=== PATIENT | female | born 1970 | race Caucasian/White ===

== ENCOUNTER → 2017-11-10 | Emergency (ER) | payer MEDICARE, MEDICAID ==
[~2017-11-10] VITALS: Ht 175.3 cm; Wt 63.5 kg
[~2017-11-10] MED LIST: ACETAMINOPHEN ES 500 MG TABLET ONE; ACETAMINOPHEN ES 500 MG TABLET PO ONE
[2017-11-10 14:09] VITALS: BP 102/81
== END | disposition home or self-care (01) ==
LOC: ER 13:55
DX: J06.9 Acute upper respiratory infection, unspecified (principal); F31.9 Bipolar disorder, unspecified
CPT/HCPCS: 99283; A4606; Z7610

== ENCOUNTER 2018-03-17 19:50 | Emergency (ER) | payer MEDICARE, MEDICAID ==
[~2018-03-17] VITALS: Ht 172.7 cm; Wt 68.0 kg
[2018-03-17] MEDS ORDERED: HYDROCODONE/APAP 5/325MG 1 EACH TABLET ONE (20:26)
[2018-03-17] MEDS ORDERED: ONDANSETRON 4 MG TAB.RAPDIS ONE (20:26)
[2018-03-17] MEDS ORDERED: TRAMADOL HCL 50 MG TABLET PO ONE (20:30)
[2018-03-17] MEDS ORDERED: ONDANSETRON 4 MG TAB.RAPDIS SL ONE (20:30)
[2018-03-17] MEDS ORDERED: HYDROCODONE/APAP 5/325MG 1 EACH TABLET PO ONE (20:30)
[2018-03-17] MEDS ORDERED: TRAMADOL HCL 50 MG TABLET ONE (21:13)
[2018-03-17 22:46] VITALS: BP 101/60
== END 2018-03-17 22:47 | disposition home or self-care (01) ==
LOC: ER 19:51
DX: S63.92XA Sprain of unspecified part of left wrist and hand, initial encounter (principal); F31.9 Bipolar disorder, unspecified; W17.89XA Other fall from one level to another, initial encounter; Y93.39 Activity, other involving climbing, rappelling and jumping off; Y92.89 Other specified places as the place of occurrence of the external cause; Y99.8 Other external cause status
CPT/HCPCS: 73090-TC; 73130-TC; A4606; Q0162; Z7610

== ENCOUNTER 2022-03-14 16:14 | Inpatient (IN) | payer MEDICARE, OTHER ==
[~2022-03-14] VITALS: Ht 172.7 cm; Wt 83.9 kg
--- NOTE | 2022-03-14 16:33 | NUR ---
CAME IN FOR SUICIDAL IDEATION WITH PLAN TO OD ON PILLS. TO ER BED 11, HOOKED TO MONITOR, CHANGED TO HOSP GOWN, WARM BLANKET PROVIDED. PATIENT AAO x 4, NOT IN DISTRESS. SUICIDAL PRECAUTIONS APPLIED. SITTER AT BEDSIDE. AWAITING MD MOTA
--- NOTE | 2022-03-14 16:36 | NUR ---
DR WEBB AT BEDSIDE
[2022-03-14 17:06] LABS: BASOPHILS % (AUTO) 0.5 % (0.0-2.0); HEMATOCRIT 41 % (33-45); HEMOGLOBIN 13.2 g/dL (11.5-14.8); LYMPHOCYTES # (AUTO) 0.8 K/uL (0.8-4.8); LYMPHOCYTES % (AUTO) 9.7 % (20.0-44.0); MEAN CORPUSCULAR HGB CONC 33 g/dl (31.0-36.0); MEAN CORPUSCULAR VOLUME 96 fL (82-100); MONOCYTES % (AUTO) 11.2 % (2.0-12.0); NEUTROPHILS # (AUTO) 6.6 K/uL (1.8-8.9); NEUTROPHILS % (AUTO) 77.6 % (43.0-81.0); PLATELET COUNT (AUTO) 315 K/uL (150-450); RED BLOOD CELL COUNT(AUTO) 4.21 MIL/uL (4.0-5.2); WHITE BLOOD COUNT (AUTO) 8.5 K/uL (4.3-11.0)
--- NOTE | 2022-03-14 17:15 | NUR ---
PETER ORELLANA [phone] LEFT VM
--- NOTE | 2022-03-14 17:16 | NUR ---
URINE COLLECTED AND SENT TO LAB
[2022-03-14] MEDS ORDERED: ACETAMINOPHEN ES 500 MG TABLET ONE (17:25)
[2022-03-14] MEDS ORDERED: ACETAMINOPHEN ES 500 MG TABLET PO ONE (17:30)
--- NOTE | 2022-03-14 17:33 | NUR ---
PER LAB, NEEDS MORE URINE SAMPLE. MADE MD AWARE
[2022-03-14 17:42] LABS: ACETAMINOPHEN 4 ug/ml (10-30); ALANINE AMINOTRANSFERASE 30 U/L (12-78); ALBUMIN 3.6 g/dL (3.4-5.0); ALKALINE PHOSPHATASE 129 U/L (46-116); ASPARTATE AMINOTRANSFERASE 16 U/L (15-37); BILIRUBIN,DIRECT 0.1 mg/dL (0.0-0.2); BILIRUBIN,TOTAL 0.2 mg/dL (0.2-1.0); CALCIUM, SERUM 8.7 mg/dL (8.5-10.1); CARBON DIOXIDE 26 mmol/L (21-32); CHLORIDE 106 mmol/L (98-107); GLUCOSE 109 mg/dL (74-106); SODIUM SERUM 135 mmol/L (136-145); TOTAL PROTEIN, SERUM 6.7 g/dL (6.4-8.2); UREA NITROGEN, BLOOD 18 mg/dL (7-18)
[2022-03-14 17:42] LABS: BILIRUBIN,URINE NEGATIVE (NEGATIVE); COLOR,URINE YELLOW (YELLOW); LEUKOCYTE ESTERASE ,URINE NEGATIVE (NEGATIVE); NITRITE, URINE NEGATIVE (NEGATIVE); PROTEIN,URINE NEGATIVE (NEGATIVE); UGLUCOSE NEGATIVE (NEGATIVE); UROBILINOGEN,URINE 0.2 EU/dL (0.2)
[2022-03-14 17:45] LABS: ALCOHOL, BLOOD < 3 mg/dL (0-0)
--- NOTE | 2022-03-14 17:47 | NUR ---
PATIENT NOT ABLE TO PROVIDE URINE SAMPLE AT THIS TIME. MADE AWARE
--- NOTE | 2022-03-14 17:50 | NUR ---
URINE SAMPLE SENT TO LAB
[2022-03-14 17:51] LABS: BACTERIA,URINE None seen /HPF (None Seen); RBC,URINE 0-2 /HPF (0-2); SQUAMOUS EPITHELIAL CELL,UR 0-2 /HPF (None Seen); WBC,URINE 0-2 /HPF (0-3)
--- NOTE | 2022-03-14 18:03 | NUR ---
REYNA CALLED SHE BE HERE AFTER CHANGE OF SHIFT.
[2022-03-14] MEDS ORDERED: MIDODRINE HCL (5MG) 5 MG TABLET ONE (18:29)
[2022-03-14] MEDS ORDERED: SODIUM CHLORIDE 1000 MG TABLET PO ONE (18:30)
[2022-03-14] MEDS ORDERED: DROXIDOPA 300 MG PO ONE (18:30)
[2022-03-14] MEDS: MIDODRINE HCL (5MG) 5 MG TABLET PO SCH (18:30)
[2022-03-14] MEDS ORDERED: MISCELLANEOUS MED 1 EA EA XX ONE (18:30)
--- NOTE | 2022-03-14 19:22 | NUR ---
REPORT GIVEN TO RICK CHOWDARY FOR SHANNAN
[2022-03-14] MEDS ORDERED: OLANZAPINE 5 MG TABLET ONE (23:58)
[2022-03-15] MEDS ORDERED: OLANZAPINE 5 MG TABLET PO ONE
[2022-03-15] MEDS ORDERED: LORAZEPAM 1 MG TABLET ONE (00:14)
[2022-03-15] MEDS ORDERED: LORAZEPAM 1 MG TABLET PO ONE (00:30)
--- NOTE | 2022-03-15 01:22 | NUR ---
REPORT GIVEN TO EPI SADLER
--- NOTE | 2022-03-15 01:28 | NUR ---
PT TRANSFERRED TO GPS, VSS, NO ACUTE DISTRESS NOTED.
[2022-03-15] MEDS ORDERED: MAG HYDROX/AL HYDROX/SIMETH 30 ML UDC PO PRN (02:00)
[2022-03-15] MEDS ORDERED: MAGNESIUM HYDROXIDE 30 ML UDC PO PRN (02:00)
[2022-03-15] MEDS ORDERED: FLUO40CA8 PO (02:06)
[2022-03-15] MEDS ORDERED: FLUO10CA26 PO (02:07)
[2022-03-15] MEDS ORDERED: PROP60CA38 PO (02:09)
[2022-03-15] MEDS ORDERED: QUET300T2 PO (02:10)
[2022-03-15] MEDS: TEMAZEPAM 15 MG CAPSULE PO PRN (02:11)
[2022-03-15] MEDS ORDERED: BUPR300T52 PO (02:11)
[2022-03-15] MEDS ORDERED: METH36TA PO (02:13)
--- NOTE | 2022-03-15 02:13 | NUR ---
RN NOTES: INSOMNIA PT. C/O UNABLE TO SLEEP , PRN RESTORIL 15 MG PO GIVEN PER PT. REQUEST, WILL CONTINUE TO MONITOR.
[2022-03-15] MEDS ORDERED: ESTR2TAB PO (02:15)
[2022-03-15] MEDS ORDERED: SENN-86 PO (02:16)
[2022-03-15] MEDS ORDERED: DROX300C PO (02:27)
[2022-03-15] MEDS ORDERED: POTA-10 PO (02:28)
[2022-03-15] MEDS ORDERED: BLOOD SUGAR DIAGNOSTIC 1 EACH STRIP IN ONE (02:30)
[2022-03-15] MEDS ORDERED: DICY10CA13 PO (02:32)
[2022-03-15] MEDS ORDERED: SODI1TAB66 PO (02:32)
[2022-03-15] MEDS ORDERED: CYAN-51 PO (02:33)
[2022-03-15] MEDS ORDERED: DIPH50CA4 PO (02:35)
[2022-03-15] MEDS ORDERED: [UNRECOGNIZED DRUG - REMARK] PO (02:38)
[2022-03-15] MEDS ORDERED: IPRA21SP NAS (02:44)
[2022-03-15] MEDS ORDERED: LAMO200T2 PO (02:44)
[2022-03-15] MEDS ORDERED: LIOT5TAB7 PO (02:46)
[2022-03-15] MEDS ORDERED: MAGN400T26 PO (02:49)
[2022-03-15] MEDS ORDERED: PRUC2TAB PO (02:50)
[2022-03-15] MEDS ORDERED: PROG100C15 PO (02:52)
[2022-03-15] MEDS ORDERED: SWISS KRISS PO (02:54)
[2022-03-15] MEDS ORDERED: [UNRECOGNIZED DRUG - OTHER] PO (02:56)
[2022-03-15] MEDS ORDERED: TOPI100T PO (02:57)
[2022-03-15] MEDS ORDERED: TRAZ-257 PO (02:58)
[2022-03-15] MEDS ORDERED: VASCULERA PO (02:59)
[2022-03-15] MEDS ORDERED: ASCO-317 PO (03:01)
[2022-03-15] MEDS ORDERED: ERGO500040 PO (03:02)
[2022-03-15 03:10] VITALS: BP 115/70
--- NOTE | 2022-03-15 04:03 | NUR ---
RN NOTES : ADMISSION NOTES: ADMITTED THIS 51Y/O FEMALE PATIENT ADMIT FROM [facility]/ ED , INITIALLY FROM HOME PT. ADMITTED TO 5150 HOLD STATUS, PER HOLD SI, ATTEMPTED TO END HER LIFE , ANXIOUS, CRYING FACE TO FACE ASSESSMENT PATIENT IS A&O X 3 ANXIOUS ,EASILY AGITATED, RESTLESS ,PARANOID ,DISHELVED , NEEDY DEMEDNING ,POOR DECISION MAKING , LOUD SPEECH, HYPERVERBAL , POOR DECISION MAKING , BIZAAR BEHAVIOR , DENIES SI /HI AT THIS TIME, PT. IS POOR HISTORIAN, POOR INSIGHT ,POOR JUDGEMENT , BOTH MD AWARE AND NOTIFIED OF THE ADMISSION, BELONGINGS CONTRABAND WERE DONE , PT. SIGNS ADMISSION CONSENT PAPER ,ENCOURAGED PT. TO TAKE SHOWER, PT. RIGHTS DISCUSS BY OUTPLACEMENT CONSULTANT , PROVIDE THE PT. WITH HANDBOOK, AND MEDICATIONS GUIDE, ENVIRONMENTAL SAFETY CHECK DONE, ENCOURAGED PT. VERBALIZED ANY FEELING CONCERN TO STAFF, ORIENT TO UNIT POLICY, NO ACUTE DISTRESS NOTED,VITAL SIGNS WNL ,DENIES ANY PAIN AT THIS TIME,WILL CONTINUE TO MONITOR FOR Q15 SAFETY AND BEHAVIOR.
--- NOTE | 2022-03-15 06:20 | NUR ---
RN NOTES: PLACED CALLED TO FAMILY MEMEBER SHYAM GRAYSON AND LEFT MESSAGE REGARDING ABOUT ADMISSION .
[2022-03-15 08:00] VITALS: BP 138/96
[2022-03-15] MEDS ORDERED: [UNRECOGNIZED DRUG - REMARK] PO SCH (09:00)
[2022-03-15] MEDS ORDERED: KRISS PO SCH (09:00)
[2022-03-15] MEDS: DICYCLOMINE HCL 10 MG CAPSULE PO SCH ×3 (09:00→17:45)
[2022-03-15] MEDS: LIOTHYRONINE SODIUM (5 MCG/TA 5 MCG TABLET PO SCH (09:00)
[2022-03-15] MEDS ORDERED: VASCULERA 630 MG PO SCH (09:00)
[2022-03-15] MEDS ORDERED: [UNRECOGNIZED DRUG - OTHER] PO SCH (09:00)
[2022-03-15] MEDS: MIDODRINE HCL (5MG) 5 MG TABLET PO SCH ×3 (09:00→17:45)
[2022-03-15] MEDS: PROPRANOLOL LA 60 MG CAP.SA.24H PO SCH ×2 (10:56→17:47)
[2022-03-15] MEDS: LORAZEPAM 1 MG TABLET PO PRN ×2 (12:39→23:00)
--- NOTE | 2022-03-15 12:39 | NUR ---
Patient complain of anxiety medicated with Ativan 1mg x1 ,will continue to monitor .
[2022-03-15 16:00] VITALS: BP 134/88
[2022-03-15] MEDS: SENNOSIDES/DOCUSATE SODIUM 1 TAB TABLET PO SCH (17:44)
[2022-03-15] MEDS: MAGNESIUM OXIDE 400 MG TABLET PO SCH (17:45)
[2022-03-15] MEDS: ASCORBIC ACID 500 MG TABLET PO SCH (17:45)
--- NOTE | 2022-03-15 19:25 | NUR ---
GPS RN NOTES PATIENT IS IN HER ROOM RESTING COMFORTABLY. ALERT AND ORIENTED X2. NO S/S OF ACUTE DISTRESS NOTED. PATIENT IS CALM, COOPERATIVE TO CARE, DEPRESSED MOOD, CRYING SPELLS AND MED COMPLIANT. DENIES SI/HI/AVH AT THIS TIME. SAFETY PRECAUTIONS IN PLACE. WILL CONTINUE TO MONITOR Q15MIN ROUNDS FOR SAFETY AND BEHAVIOR.
[2022-03-15 20:56] VITALS: BP_SYST 82
[2022-03-15] MEDS: PROMETRIUM 100 MG PO SCH (21:02)
[2022-03-16] MEDS: LORAZEPAM 1 MG TABLET PO PRN ×3 (04:01→21:09)
[2022-03-16] MEDS: ACETAMINOPHEN 325 MG TABLET PO PRN ×2 (04:09→21:09)
[2022-03-16 07:17] LABS: BASOPHILS % (AUTO) 0.4 % (0.0-2.0); HEMATOCRIT 42 % (33-45); HEMOGLOBIN 13.8 g/dL (11.5-14.8); LYMPHOCYTES # (AUTO) 2.1 K/uL (0.8-4.8); LYMPHOCYTES % (AUTO) 33.2 % (20.0-44.0); MEAN CORPUSCULAR HGB CONC 33 g/dl (31.0-36.0); MEAN CORPUSCULAR VOLUME 95 fL (82-100); MONOCYTES % (AUTO) 15.9 % (2.0-12.0); NEUTROPHILS # (AUTO) 2.9 K/uL (1.8-8.9); NEUTROPHILS % (AUTO) 46.5 % (43.0-81.0); PLATELET COUNT (AUTO) 322 K/uL (150-450); WHITE BLOOD COUNT (AUTO) 6.4 K/uL (4.3-11.0)
[2022-03-16 07:37] LABS: ALBUMIN 3.3 g/dL (3.4-5.0); BILIRUBIN,TOTAL 0.2 mg/dL (0.2-1.0); CREATININE 0.7 mg/dL (0.6-1.3); POTASSIUM 3.6 mmol/L (3.5-5.1); TOTAL PROTEIN, SERUM 6.6 g/dL (6.4-8.2)
[2022-03-16 07:52] LABS: CALCIUM, SERUM 8.7 mg/dL (8.5-10.1)
[2022-03-16 08:00] VITALS: BP 148/77
--- NOTE | 2022-03-16 10:37 | NUR ---
NADJA Initial Discharge Plan: Patient currently resides at home [address] [place] [address]; ([phone]) with her Narinder ([phone]) and would want to return back home. NADJA will work with the MD and family to help coordinate appropriate discharge.
--- NOTE | 2022-03-16 10:38 | NUR ---
SW Admit Source: Pt placed on a 5150 hold for danger to herself. Pt has been depressed at home. Patient currently resides at home [address] [place] [id number]; ([phone]) with her Narinder ([phone]) and would want to return back home.
--- NOTE | 2022-03-16 11:35 | NUR ---
NADJA Family Contact: SW contacted pt's Narinder ([phone]) and left a detailed voicemail of pt's admission and discussing discharge/treatment plan.
[2022-03-16] MEDS: LIOTHYRONINE SODIUM (5 MCG/TA 5 MCG TABLET PO SCH (11:39)
[2022-03-16] MEDS: ESTRADIOL 1 MG TABLET PO SCH (11:40)
[2022-03-16] MEDS: DICYCLOMINE HCL 10 MG CAPSULE PO SCH ×3 (11:41→18:04)
[2022-03-16] MEDS: CYANOCOBALAMIN 500 MCG TABLET PO SCH (11:41)
[2022-03-16] MEDS: MIDODRINE HCL (5MG) 5 MG TABLET PO SCH ×3 (11:41→18:05)
[2022-03-16] MEDS: POTASSIUM CHLORIDE 10 MEQ TABLET.SA PO SCH (11:42)
[2022-03-16] MEDS: ASCORBIC ACID 500 MG TABLET PO SCH ×2 (11:42→18:04)
[2022-03-16] MEDS: MAGNESIUM OXIDE 400 MG TABLET PO SCH ×2 (11:42→18:04)
[2022-03-16] MEDS: SODIUM CHLORIDE 1000 MG TABLET PO SCH (11:42)
[2022-03-16] MEDS: MOTEGRITY 2 MG PO SCH (14:00)
[2022-03-16] MEDS: PROMETRIUM 100 MG PO SCH (14:00)
[2022-03-16] MEDS: PROPRANOLOL LA 60 MG CAP.SA.24H PO SCH ×2 (14:02→18:10)
[2022-03-16] MEDS: IPRATROPIUM BROMIDE 0.03 % 30 ML NASPR NS SCH ×4 (14:04→21:13)
[2022-03-16 16:00] VITALS: BP 133/85
[2022-03-16] MEDS: SENNOSIDES/DOCUSATE SODIUM 1 TAB TABLET PO SCH (18:19)
--- NOTE | 2022-03-16 18:52 | NUR ---
PATIENT COMPLIANT WITH CARE, EXPRESSING DESIRE TO TALK TO PSYCH MED MD TO ADD BI-POLAR MEDICATIONS TO TREATMENT AT HOME SHE IS USE TO THESE MEDICATIONS, PROVIDED ALL MD MEDICATION ORDERS PRESCRIBED, PT COMPLIANT AND TOOK ALL MEDICATIONS, CAME AND BROUGHT IN A TURKEY SANDWICH, PICKLE, POTATOE CHIPS, AND A LARGE POWERADE GATORADE, WATER AND ICE PROVIDED AND PROVIDED COMFORT AND REASSURANCE ALL WILL GET BETTER, AND OFFERED PRAYER TO HELP HER FROM CRYING AND FEELING SO SAD , SHE WAS RECEPTIVE AND PRAYED AND STATED SHE DID BELIEVE BUT SOMETIMES BEING SOUNDS LIKE A BETTER OPTION, I REDIRECTED HER THAT THAT IS A NEGATIVE BAD THOUGHT AND THE CONSEQUENCES WOULD NOT BE GOOD AND TO TRY TO THINK ABOUT MORE POSITIVE THOUGHTS WHEN THE THOUGHTS OF SUICIDE AND TAKING HER OWN LIFE CREEP INTO HER MINDSET, SHE NODDED HER HEAD AND SAID SHE WOULD REALLY TRY TO BE MORE POSITIVE. MEDITATION AND PRAYER TECHNIQUES AND REINFORCEMENT OF POSITIVE AFFIRMATIONS WERE EFFECTIVE FOR THIS PATIENT.
[2022-03-16 19:54] VITALS: BP 129/76
[2022-03-16] MEDS: LamoTRIgine 100 MG TABLET PO SCH (21:09)
[2022-03-16] MEDS: TRAZODONE 50 MG TABLET PO SCH (21:09)
[2022-03-17] MEDS: TEMAZEPAM 15 MG CAPSULE PO PRN ×2 (02:14→22:10)
[2022-03-17] MEDS: IPRATROPIUM BROMIDE 0.03 % 30 ML NASPR NS SCH ×5 (06:25→20:35)
[2022-03-17] MEDS: LEVOTHYROXINE SODIUM 25 MCG TABLET PO SCH (07:00)
[2022-03-17] MEDS: ACETAMINOPHEN 325 MG TABLET PO PRN ×2 (07:06→18:30)
[2022-03-17 08:00] VITALS: BP 119/75
[2022-03-17] MEDS: SODIUM CHLORIDE 1000 MG TABLET PO SCH (09:08)
[2022-03-17] MEDS: LIOTHYRONINE SODIUM (5 MCG/TA 5 MCG TABLET PO SCH (09:08)
[2022-03-17] MEDS: CYANOCOBALAMIN 500 MCG TABLET PO SCH (09:08)
[2022-03-17] MEDS: ASCORBIC ACID 500 MG TABLET PO SCH ×2 (09:08→17:38)
[2022-03-17] MEDS: ESTRADIOL 1 MG TABLET PO SCH (09:09)
[2022-03-17] MEDS: DICYCLOMINE HCL 10 MG CAPSULE PO SCH ×3 (09:09→17:38)
[2022-03-17] MEDS: BUPROPION XL 150 MG TAB.ER.24 PO SCH (09:09)
[2022-03-17] MEDS: POTASSIUM CHLORIDE 10 MEQ TABLET.SA PO SCH (09:09)
[2022-03-17] MEDS: LamoTRIgine 100 MG TABLET PO SCH ×2 (09:09→22:00)
[2022-03-17] MEDS: MAGNESIUM OXIDE 400 MG TABLET PO SCH ×2 (09:09→17:38)
[2022-03-17] MEDS: MOTEGRITY 2 MG PO SCH (09:22)
[2022-03-17] MEDS: PROPRANOLOL LA 60 MG CAP.SA.24H PO SCH ×2 (09:23→17:43)
[2022-03-17] MEDS: MIDODRINE HCL (5MG) 5 MG TABLET PO SCH ×3 (09:28→17:39)
--- NOTE | 2022-03-17 10:34 | NUR ---
Social Work Note/Substance Abuse Intervention: Patient was provided with a brief substance abuse intervention and referred to [facility] ([phone]), [facility] ([phone]), and [facility] ([phone]) for drinking alcohol in the past.
[2022-03-17] MEDS: LORAZEPAM 1 MG TABLET PO PRN ×2 (12:53→20:34)
--- NOTE | 2022-03-17 12:54 | NUR ---
Patient complain of anxiety medicated with Ativan 1mg x1 ,will continue to monitor .
[2022-03-17 16:00] VITALS: BP 123/90
[2022-03-17] MEDS: SENNOSIDES/DOCUSATE SODIUM 1 TAB TABLET PO SCH (17:38)
[2022-03-17 19:42] VITALS: BP 145/73
--- NOTE | 2022-03-17 20:00 | NUR ---
GPS RN NOTE RECEIVED PATIENT IN HER ROOM WITH HER . PATIENT DENIES SI/HI AT THIS TIME. PATIENT ABLE TO MAKE NEEDS KNOWN. PATIENT IS AMBULATORY AND STEADY. PT IS HAPPY TO BE GOING HOME TOMORROW. SAFETY PRECAUTIONS IN PLACE. WILL CONTINUE TO MONITOR Q15MIN FOR SAFETY AND BEHAVIOR.
--- NOTE | 2022-03-17 20:47 | NUR ---
GPS RN NOTE PATIENT ANXIOUS AND RESTLESS, REQUESTED ATIVAN. ATIVAN 1 MG PO GIVEN ORDERED. WILL CONTINUE TO MONITOR PATIENT
[2022-03-17] MEDS: TRAZODONE 50 MG TABLET PO SCH (21:59)
[2022-03-17] MEDS ORDERED: ATORVASTATIN 10 MG TABLET PO SCH (22:00)
[2022-03-17] MEDS: PROMETRIUM 100 MG PO SCH (22:00)
--- NOTE | 2022-03-17 22:10 | NUR ---
GPS RN NOTE PATIENT REQUESTED SLEEPING PILL, RESTORIL 15 MG PO GIVEN ORDERED. WILL CONTINUE TO MONITOR PATIENT
[2022-03-18] MEDS: LORAZEPAM 1 MG TABLET PO PRN (02:08)
[2022-03-18] MEDS: ACETAMINOPHEN 325 MG TABLET PO PRN (02:08)
--- NOTE | 2022-03-18 02:13 | NUR ---
GPS RN NOTE PATIENT REPORTING HEADACHE AND ANXIETY. PRN ATIVAN 1 MG PO AND TYLENOL 650 MG PO GIVEN ORDERED. WILL CONTINUE TO MONITOR PATIENT
--- NOTE | 2022-03-18 06:37 | NUR ---
GPS RN CLOSING NOTE PATIENT SLEEPING IN BED, ALERT/ORIENTED X 3, PT ABLE TO MAKE NEEDS KNOWN. PATIENT STABLE ON RA, NO S/S OF DISTRESS OR SOB NOTED, BREATHING EVEN AND UNLABORED. MEDICATIONS GIVEN ORDERED, PT MED COMPLIANT. PATIENT ASKED FOR PRN MEDICATION A COUPLE TIMES DURING SHIFT FOR SLEEP, ANXIETY, AND HEADACHE, MEDICATIONS GIVEN ORDERED. PATIENT PROVIDED WITH FLUIDS AND SNACK DURING SHIFT, PT NEEDS MET. SAFETY MEASURES MAINTAINED THROUGHOUT SHIFT WITH Q15 MIN CHECKS FOR SAFETY AND BEHAVIOR. WILL ENDORSE PLAN OF CARE TO ONCOMING SHIFT.
[2022-03-18] MEDS: IPRATROPIUM BROMIDE 0.03 % 30 ML NASPR NS SCH ×2 (07:00→11:00)
[2022-03-18] MEDS: LEVOTHYROXINE SODIUM 25 MCG TABLET PO SCH (07:30)
[2022-03-18 08:00] VITALS: BP 123/69
--- NOTE | 2022-03-18 08:52 | NUR ---
SW Discharge Note: Patient will be discharged back [place] [address] [place] [address]; ([phone]). Patients Narinder ([phone]) will oyster picker pt at 12:30PM. Patient is alert and oriented x4. Patient denies suicidal or homicidal ideation. Patient denies visual/auditory hallucinations. Patient will follow up with (Section Supervisor) Dr. Mcmahon located [address], [place] [address]; ([phone]). Patient will follow up with (Psychiatrist) Dr. Hernández located at [address], [address], [place] [address]; ([phone]) on 03/19/2022 at 1:30PM. Patient presents with euthymic mood and congruent affect.
[2022-03-18] MEDS ORDERED: ERGOCALCIFEROL (VITAMIN D 2) 50,000 UNIT CAPSULE PO SCH (09:00)
[2022-03-18] MEDS ORDERED: ASPIRIN EC 81 MG TABLET.DR PO SCH (09:00)
[2022-03-18] MEDS: CYANOCOBALAMIN 500 MCG TABLET PO SCH (09:41)
[2022-03-18] MEDS: ASCORBIC ACID 500 MG TABLET PO SCH (09:41)
[2022-03-18] MEDS: LIOTHYRONINE SODIUM (5 MCG/TA 5 MCG TABLET PO SCH (09:41)
[2022-03-18] MEDS: MAGNESIUM OXIDE 400 MG TABLET PO SCH (09:42)
[2022-03-18] MEDS: SODIUM CHLORIDE 1000 MG TABLET PO SCH (09:42)
[2022-03-18] MEDS: DICYCLOMINE HCL 10 MG CAPSULE PO SCH (09:42)
[2022-03-18] MEDS: POTASSIUM CHLORIDE 10 MEQ TABLET.SA PO SCH (09:42)
[2022-03-18] MEDS: MIDODRINE HCL (5MG) 5 MG TABLET PO SCH (09:42)
[2022-03-18] MEDS: BUPROPION XL 150 MG TAB.ER.24 PO SCH (09:42)
[2022-03-18] MEDS: ESTRADIOL 1 MG TABLET PO SCH (09:49)
[2022-03-18 09:50] VITALS: BP 123/69
[2022-03-18] MEDS: PROPRANOLOL LA 60 MG CAP.SA.24H PO SCH (09:50)
[2022-03-18] MEDS: MOTEGRITY 2 MG PO SCH (09:50)
[2022-03-18] MEDS: LamoTRIgine 100 MG TABLET PO SCH (09:55)
[2022-03-18] MEDS ORDERED: ATOR10TA PO (11:31)
[2022-03-18] MEDS ORDERED: ASPI-1169 PO (11:31)
--- NOTE | 2022-03-18 13:00 | NUR ---
Patient discharged home with in stable condition.Compliant with medications ,cooperative with treatment plans Patient denies SI/HI/AVH .Behavior improved ,psychiatric tx plans met ,medical tx plans differed for for continual monitoring Educated pt about after care plan (Exit -care)and copy provided .Returned personal belongings to patient med list and prescription given and explained to patient able to verbalize understanding .Vs stable ,no c/o pain .Patient seen by and KERVIN TALAVERA with discharge orders and prescriptions .Patient discharge at 1300 with .
== END 2022-03-18 13:00 | disposition home or self-care (01) | DRG 885 ==
LOC: ER 16:18 → GPS 03-15 01:16
PROVIDERS: ADMIT Psychiatry & Neurology Psychiatry; ATTEND Family Medicine
DX: F31.30 Bipolar disorder, current episode depressed, mild or moderate severity, unspecified (principal); F50.2 Bulimia nervosa; R45.851 Suicidal ideations; F90.9 Attention-deficit hyperactivity disorder, unspecified type; M79.7 Fibromyalgia; F41.9 Anxiety disorder, unspecified; E78.5 Hyperlipidemia, unspecified; G62.9 Polyneuropathy, unspecified; Z91.51 Personal history of suicidal behavior; F32.A Depression, unspecified; Z20.822 Contact with and (suspected) exposure to COVID-19
CPT/HCPCS: 36415; 80048-TC; 80053-TC; 80061-TC; 80076-TC; 81001; 82962-TC; 85025-TC; 87081-TC; C9803; G0480